=== PATIENT | female | born 1945 | race Caucasian/White ===

== ENCOUNTER → 2017-03-17 | Outpatient (CLI) | payer SELFPAY ==
[2016-03-03 10:30] VITALS: BP 145/67
--- NOTE | 2017-03-17 17:34 | CT ---
HISTORY: Screening Cardiac calcium scoring. Technique: Multiple axial images of the chest were obtained on a [address] from the aortic arch to the base of the heart with noncontrast prospective gating. AEC was utilized. Findings: A total calcium score of 59 is observed. The patient is between the 25th and 50th percentile for age and sex with definite, at least mild, atherosclerotic plaque and mild/minimal minimal Coronary narro wings likely. There is linear opacity in the left lung base representing scar versus subsegmental atelectasis. Mil d thoracic spondylosis is noted. IMPRESSION: Mild calcified atherosclerotic plaque. Reported By:
== END ==
LOC: RAD 14:55
PROVIDERS: ATTEND Internal Medicine Cardiovascular Disease
DX: Z13.6 Encounter for screening for cardiovascular disorders (principal)

== ENCOUNTER → 2017-07-07 | Outpatient (CLI) | payer OTHER ==
[2016-03-03 10:30] VITALS: BP 145/67
--- NOTE | 2017-07-08 11:56 | CT ---
HISTORY: Left pleural mass Study: CT chest without contrast Comparison: Plain films 05/03/2017) Technique: Axial noncontrast images with coronal and sagittal reformats. Dose reduction procedures we re used with mA/kv adjusted for body size. Findings: Examination of the mediastinum demonstrated the patient be status post right lobe thyroidectomy. No m ediastinal masses, enlarged lymphadenopathy, or enlarged hilar adenopathy is identified. No pleural e ffusions are identified. No chest wall or axillary abnormality is identified. No definite left lower casey thorax pleural-based mass is identified to correspond with the finding on the prior chest x-ray. There is some prominent fat identified along the surface of the left hemidiaphragm which could accou nt for the finding on plain film. Examination of the lung alfredo demonstrated no significant nodules, masses, areas of consolidation, alveolar infiltrates, or peribronchial thickening. There is mild foc al bronchiectasis in the left lower lobe where there is also some subsegmental atelectasis. IMPRESSION: No concerning pleural based mass left lower casey thorax. There is a focus of pleural fat in that area which could account for the plain film finding. Focal bronchiectasis and subsegmental atelectasis left lower lobe Reported By:
== END ==
LOC: RAD 11:10
PROVIDERS: ATTEND Internal Medicine Sleep Medicine
DX: R93.8 Abnormal findings on diagnostic imaging of other specified body structures (principal)
CPT/HCPCS: 71250